=== PATIENT | female | born 1945 | race Hispanic/Latino ===

== ENCOUNTER 2019-02-03 12:40 | Inpatient (IN) | payer MEDICARE ==
[2019-02-03 12:55] VITALS: BMI 31.4
[2019-02-03 13:37] LABS: BASO % 0.4 % (0.0-2.0); EOS # 0.1 K/uL (0.0-0.7); EOS % 0.6 % (0.0-4.0); HEMOGLOBIN 13.3 g/dL (11.0-16.0); LYMPH # 0.7 K/uL (1.0-4.3); LYMPH % 8.4 % (20.0-40.0); MEAN CORPUSCULAR HEMOGLOBIN 28.4 pg (27.0-31.0); MEAN CORPUSCULAR HGB CONC 33.4 g/dL (33.0-37.0); MONO # 0.5 K/uL (0.0-0.8); MONO % 6.9 % (0.0-10.0); NEUT # 6.6 K/uL (1.8-7.0); NEUT % 83.7 % (50.0-75.0); NRBC % 0.1 % (0.0-2.0); RBC 4.69 Mil/uL (3.80-5.20); RED CELL DISTRIBUTION WIDTH 13.8 % (11.5-14.5); WHITE BLOOD COUNT 7.9 K/uL (4.8-10.8)
[2019-02-03 13:40] LABS: SQUAMOUS EPITHIAL 4 /hpf (0-5); URINE BACTERIA OCC (<OCC); URINE BILIRUBIN NEGATIVE (NEGATIVE); URINE BLOOD NEGATIVE (NEGATIVE); URINE CLARITY Clear (Clear); URINE COLOR Yellow (YELLOW); URINE GLUCOSE (UA) NORMAL (Normal); URINE LEUKOCYTE ESTERASE NEG Leu/uL (Negative); URINE PROTEIN NEGATIVE (NEGATIVE); URINE UROBILINOGEN NORMAL mg/dL (0.2-1.0)
[2019-02-03 13:49] LABS: ALB/GLOB RATIO 1.2 (1.0-2.1); ALBUMIN 4.5 g/dL (3.5-5.0); ALT/SGPT 20 U/L (9-52); AST/SGOT 22 U/L (14-36); BLOOD UREA NITROGEN 12 mg/dL (7-17); CALCIUM 9.8 mg/dl (8.6-10.4); GFR NON-AFRICAN AMERICAN > 60; PLATELET COUNT 372 K/uL (130-400)
[2019-02-03 14:00] LABS: B-TYPE NATRIURETIC PEPTIDE 208 pg/mL (0-900)
--- NOTE | 2019-02-03 14:21 | RAD ---
Date of service: 02/03/2019 HISTORY: Shortness of breath. COMPARISON: No prior. TECHNIQUE: Chest PA and lateral views FINDINGS: LUNGS: Right lower lobe infiltrate. Increased interstitial markings etiology/acuity unknown. PLEURA: No significant pleural effusion identified. No pneumothorax apparent. CARDIOVASCULAR: No aortic atherosclerotic calcification present. Normal cardiac size. No pulmonary vascular congestion. OSSEOUS STRUCTURES: No significant abnormalities. VISUALIZED UPPER ABDOMEN: Normal. OTHER FINDINGS: None. IMPRESSION: Right lower lobe infiltrate.
--- NOTE | 2019-02-03 14:25 | C.PDOC ---
History Of Present Illness The patient is a 73-year-old female whose past medical history includes lung cancer and underwent surgery in December 2018. She had resection of a mass but was told that the tissue was "not cancerous". She did not have any subsequent tr eatment. Patient states she had been doing well until she began feeling more short of breath than usual over the past two days. Patient states she feels like she can't take a full deep breath and her symptoms are exacerbated when lying down. Patient also reports cough, and her states her chest sounds very wet. Patient also noticed her legs appear slightly swollen. She denies fever, chills, chest pain at this time. PMD: Dr. Urban Recreation Technician is in [facility] Time Seen by Provider: 02/03/19 13:12 Chief Complaint (Nursing): Shortness Of Breath History Per: Patient History/Exam Limitations: no limitations Onset/Duration Of Symptoms: Days (2) Current Symptoms Are (Timing): Still Present Exacerbating Factor(s): Laying Flat Associated Symptoms: denies: Fever, Chills, Chest Pain Past Medical History Reviewed: Historical Data, Nursing Documentation, Vital Signs Vital Signs: Last Vital Signs Temp 97.7 F 02/03/19 12:55 Pulse 90 02/03/19 13:10 Resp 22 02/03/19 13:10 BP 162/89 H 02/03/19 13:10 Pulse Ox 97 02/03/19 13:10 Primary Care Provider: Андрей Urban - Medical History PMH: HTN, Hypercholesterolemia Surgical History: No Surg Hx Family History: States: No Known Family Hx - Social History Hx Tobacco Use: Yes Hx Alcohol Use: No Hx Substance Use: No - Immunization History Hx Tetanus Toxoid Vaccination: No Hx Influenza Vaccination: No Hx Pneumococcal Vaccination: No Review Of Systems Constitutional: Negative for: Fever, Chills Cardiovascular: Negative for: Chest Pain Respiratory: Positive for: Cough, Shortness of Breath Musculoskeletal: Positive for: Other (leg swelling ) Physical Exam - Physical Exam Appears: Non-toxic, No Acute Distress Skin: Normal Color, Warm, Dry Head: Atraumatic, Normacephalic Eye(s): bilateral: Normal Inspection Oral Mucosa: Moist Neck: Supple Chest: Symmetrical, No Deformity, No Tenderness Cardiovascular: Rhythm Regular, No Murmur Respiratory: Normal Breath Sounds, No Rales, No Rhonchi, No Wheezing Extremity: Normal ROM, Capillary Refill (less than 2 seconds ), Other (mild, 1+ edema equally to bilateral lower extremities ) Pulses: Left Dorsalis Pedis: Normal, Right Dorsalis Pedis: Normal Neurological/Psych: Oriented x3, Normal Speech, Normal Cognition ED Course And Treatment - Laboratory Results Result Diagrams: 02/03/19 13:28 02/03/19 13:28 Lab Results: D-Dimer, Quantitative 1919 ng/mlDDU (0-243) H 02/03/19 13:28 Troponin I < 0.0120 ng/mL (0.00-0.120) 02/03/19 13:28 NT-Pro-B Natriuret Pep 208 pg/mL (0-900) 02/03/19 13: Total Bilirubin 0.6 mg/dL (0.2-1.3) 02/03/19 13:28 AST 22 U/L (14-36) 02/03/19 13:28 ALT 20 U/L (9-52) 02/03/19 13:28 Alkaline Phosphatase 141 U/L (38-126) H 02/03/19 13:28 Total Protein 8.4 g/dL (6.3-8.3) H 02/03/19 13:28 Albumin 4.5 g/dL (3.5-5.0) 02/03/19 13:28 Globulin 3.9 gm/dL (2.2-3.9) 02/03/19 13:28 Albumin/Globulin Ratio 1.2 (1.0-2.1) 02/03/19 13:28 Urine Color Yellow (YELLOW) 02/03/19 13:28 Urine Clarity Clear (Clear) 02/03/19 13:28 Urine pH 6.0 (5.0-8.0) 02/03/19 13:28 Ur Specific [place] 1.013 (1.003-1.030) 02/03/19 13:28 Urine Protein Negative mg/dL (NEGATIVE) 02/03/19 13:28 Urine Glucose (UA) Normal mg/dL (Normal) 02/03/19 13:28 Urine Ketones 1+ mg/dL (NEGATIVE) H 02/03/19 13:28 Urine Blood Negative (NEGATIVE) 02/03/19 13:28 Urine Nitrate Negative (NEGATIVE) 02/03/19 13:28 Urine Bilirubin Negative (NEGATIVE) 02/03/19 13:28 Urine Urobilinogen Normal mg/dL (0.2-1.0) 02/03/19 13:28 Ur Leukocyte Esterase Neg [place]/uL (Negative) 02/03/19 13:28 Urine WBC (Auto) 1 /hpf (0-5) 02/03/19 13:28 Urine RBC (Auto) 1 /hpf (0-3) 02/03/19 13:28 Ur Squamous Epith Cells 4 /hpf (0-5) 02/03/19 13:28 Urine Bacteria Occ (<OCC) H 02/03/19 13:28 Lab Interpretation: Abnormal (Na 131, Cl 95, d dimer 1919) ECG: Interpreted By Me ECG Rhythm: Sinus Rhythm ECG Interpretation: Normal O2 Sat by Pulse Oximetry: 97 (on RA ) Pulse Ox Interpretation: Normal - Radiology CXR: Viewed By Me, Read By Radiologist CXR Interpretation: Yes: Infiltrates (RLL) - Other Rad CXR X-Ray: Viewed By Me, Read By Radiologist Interpretation: Date of service: 02/03/2019. HISTORY: Shortness of breath. COMPARISON: No prior. TECHNIQUE: Chest PA and lateral views. FINDINGS: LUNGS: Right lower lobe infiltrate. Increased interstitial markings etiology/acuity unknown. PLEURA: No significant pleural effusion identified. No pneumothorax apparent. CARDIOVASCULAR: No aortic atherosclerotic calcification present. Normal cardiac size. No pulmonary vascular congestion. OSSEOUS STRUCTURES: No significant abnormalities. VISUALIZED UPPER ABDOMEN: Normal. OTHER FINDINGS: None. IMPRESSION: Right lower lobe infiltrate. - CT Scan/US CT angio Chest Other Rad Studies (CT/US): Read By Radiologist, Radiology Report Reviewed CT/US Interpretation: Accession No. : [id number]. Patient Name / ID : SUE MAJOR / [id number]. Exam Date : 02/03/2019 15:52:12 ( Approved ). Study Comment : Sex / Age : F / 73Y. Creator : Pat Diane. Dictator : Martinez Taylor MD. Customizer : Relay Repairer : Martinez Taylor MD. Approver2 : Report Date : 02/03/2019 16:01:55. My Comment : . Date of service: 02/03/2019. PROCEDURE: CT Chest with contrast (Pulmonary Angiogram). HISTORY: shortness of breath. COMPARISON: Chest radiograph 02/03/2019. TECHNIQUE: Axial computed tomography images were obtained of the chest in the pulmonary arterial phase of enhancement. Coronal and sagittal reformatted images were created and reviewed. Intravenous contrast dose: Visipaque 320, 100 cc. Radiation dose: Total exam DLP = 590.52 mGy-cm. This CT exam was performed using one or more of the following dose reduction techniques: Automated exposure control, adjustment of the mA and/or kV according to patient size, and/or use of iterative reconstru ction technique. FINDINGS: PULMONARY ARTERIES: Unremarkable. No pulmonary embolism. AORTA: No acute findings. No thoracic aortic aneurysm. No aortic atherosclerotic calcification or mural plaque present. LUNGS: Diffuse ground- glass opacities appreciated as well as increased interstitial markings. Pulmonary venous anatomy appears slightly dilated relative to the associate financial representative airways in a pattern suspicious for CHF. Interstitial pulmonary disease, either infectious or inflammatory is the differential diagnosis but since there is pulmonary vascular congestion, CHF is highly favored. Clinically correlate further. Reticular nodular changes are identified at bilateral pulmonary apices without definite alveolar infiltrates bilaterally. PLEURAL SPACES: Moderate right pleural effusion. None is seen the left. No pericardial effusion. No significant lymphadenopathy. HEART: Cardiac size is normal. Coronary artery calcifications are identified. Main pulmonary artery is normal in caliber. No overt enlargement of the right ventricle relative to the left. BONES, CHEST WALL: See below. No fracture or destructive bony lesion appreciated. OTHER FINDINGS: Prominent emphysema seen the right chest superficial and deep subcutaneous fat extending through the right breast. Further, emphysema is seen deep to the right pectoralis major muscle approaching the upper right rib cage level near the thoracic apex. IMPRESSION: 1. No CT evidence of pulmonary embolus. 2. Questionable deep laceration right breast/chest wall with extensive emphysematous change at the superficial and deep right breast subcutaneous fat and through the right pectoralis major muscle approaching the right apex ribs. No pneumothorax bilaterally. 3. Moderate right pleural effusion. 4. Bilateral interstitial pulmonary disease in reticular nodular pattern may be a function of atypical pneumonitis though post radiation change, post chemotherapy related inflammation or other inflammatory or infectious process is a possibility. Clinically correlate further. CHF is not favored clinically on discussion of the findings with the referring physician but is a limited possibility. Findings discussed by telephone with Dr. Raza with written down and read back verification 02/03/2019 4:20 p.m.. Progress Note: Bloodwork, urinalysis, CXR, CT Angio Chest and EKG ordered and reviewed. PMD Dr Urban covered by Dr Olvera. Case discussed and results reviewed. [facility] Reevaluation Time: 18:13 Reassessment Condition: Unchanged - Physician Consult Information Time Consulting Physician Contacted: 18:13 Physician Contacted: Eric Olvera Outcome Of Conversation: Patient to be admitted for evaluation of dyspnea, right pleural effusion and diffuse interstitial pneumonitis. Disposition - Disposition Disposition: HOSPITALIZED Disposition Time: 18:17 Condition: STABLE - POA Present On Arrival: None - Clinical Impression Clinical Impression: Dyspnea, Pleural effusion, Pneumonitis - Scribe Statement The provider has reviewed the documentation as recorded by the Scribe (Charisse Olvera) Provider Attestation: All medical record entries made by the Scribe were at my direction and personally dictated by me. I have reviewed the chart and agree that the record accurately reflects my personal performance of the history, physical exam, medical decision making, and the department course for this patient. I have also personally directed, reviewed, and agree with the discharge instructions and disposition.
[2019-02-03 14:26] LABS: BANDS 1 % (0-2); LYMPHOCYTE 2 % (20-40); MONOCYTE 4 % (0-10); NEUTROPHIL 93 % (50-75); TOTAL CELLS COUNTED 100
[2019-02-03 14:27] LABS: PLATELET ESTIMATE NORMAL (NORMAL)
[2019-02-03] MEDS ORDERED: Iodixanol 320 MG/ML 100 ML BOTTLE IV ONE (15:10)
--- NOTE | 2019-02-03 16:29 | CT ---
Date of service: 02/03/2019 PROCEDURE: CT Chest with contrast (Pulmonary Angiogram) HISTORY: shortness of breath COMPARISON: Chest radiograph 02/03/2019. TECHNIQUE: Axial computed tomography images were obtained of the chest in the pulmonary arterial phase of enhancement. Coronal and sagittal reformatted images were created and reviewed. Intravenous contrast dose: Visipaque 320, 100 cc Radiation dose: Total exam DLP = 590.52 mGy-cm. This CT exam was performed using one or more of the following dose reduction techniques: Automated exposure control, adjustment of the mA and/or kV according to patient size, and/or use of iterative reconstruction technique. FINDINGS: PULMONARY ARTERIES: Unremarkable. No pulmonary embolism. AORTA: No acute findings. No thoracic aortic aneurysm. No aortic atherosclerotic calcification or mural plaque present. LUNGS: Diffuse ground-glass opacities appreciated as well as increased interstitial markings. Pulmonary venous anatomy appears slightly dilated relative to the psychological assistant airways in a pattern suspicious for CHF. Interstitial pulmonary disease, either infectious or inflammatory is the differential diagnosis but since there is pulmonary vascular congestion, CHF is highly favored. Clinically correlate further. Reticular nodular changes are identified at bilateral pulmonary apices without definite alveolar infiltrates bilaterally. PLEURAL SPACES: Moderate right pleural effusion. None is seen the left. No pericardial effusion. No significant lymphadenopathy. HEART: Cardiac size is normal. Coronary artery calcifications are identified. Main pulmonary artery is normal in caliber. No overt enlargement of the right ventricle relative to the left. BONES, CHEST WALL: See below. No fracture or destructive bony lesion appreciated. OTHER FINDINGS: Prominent emphysema seen the right chest superficial and deep subcutaneous fat extending through the right breast. Further, emphysema is seen deep to the right pectoralis major muscle approaching the upper right rib cage level near the thoracic apex. IMPRESSION: 1. No CT evidence of pulmonary embolus. 2. Questionable deep laceration right breast/chest wall with extensive emphysematous change at the superficial and deep right breast subcutaneous fat and through the right pectoralis major muscle approaching the right apex ribs. No pneumothorax bilaterally. 3. Moderate right pleural effusion. 4. Bilateral interstitial pulmonary disease in reticular nodular pattern may be a function of atypical pneumonitis though post radiation change, post chemotherapy related inflammation or other inflammatory or infectious process is a possibility. Clinically correlate further. CHF is not favored clinically on discussion of the findings with the referring physician but is a limited possibility. Findings discussed by telephone with Dr. Raza with written down and read back verification 02/03/2019 4:20 p.m..
--- NOTE | 2019-02-03 19:41 | CP.PCM.HP ---
Past Patient History - Infectious Disease Hx of Infectious Diseases: None - Past Social History Smoking Status: Former Smoker - CARDIAC Hx Hypercholesterolemia: Yes Hx Hypertension: Yes - PSYCHIATRIC Hx Substance Use: No - SURGICAL HISTORY Other/Comment: Hx Right Lung Biopsy - ANESTHESIA Hx Anesthesia: No Meds Allergies/Adverse Reactions: Allergies Allergy/AdvReac Type Severity Reaction Status Date / Time No Known Allergies Allergy Verified 02/03/19 12:55 Physical Exam - Constitutional Appears: Well - Head Exam Head Exam: ATRAUMATIC, NORMAL INSPECTION, NORMOCEPHALIC - Eye Exam Eye Exam: EOMI, Normal appearance, PERRL Pupil Exam: NORMAL ACCOMODATION, PERRL - ENT Exam ENT Exam: Mucous Membranes Moist, Normal Exam - Neck Exam Neck exam: Positive for: Normal Inspection - Respiratory Exam Respiratory Exam: Decreased Breath Sounds - Cardiovascular Exam Cardiovascular Exam: REGULAR RHYTHM, +S1, +S2 - GI/Abdominal Exam GI & Abdominal Exam: Diminished Bowel Sounds, Soft - Rectal Exam Rectal Exam: Deferred - Neurological Exam Neurological exam: Oriented x3 Results - Vital Signs Recent Vital Signs: Last Vital Signs Temp 97.7 F 02/03/19 12:55 Pulse 70 02/03/19 17:21 Resp 20 02/03/19 17:21 BP 154/77 H 02/03/19 17:21 Pulse Ox 97 02/03/19 18:18 - Labs Result Diagrams: 02/03/19 13:28 02/03/19 13:28 Labs: Laboratory Results - last 24 hr 02/03/19 02/03/19 02/03/19 13:28 13:28 13:28 WBC 7.9 RBC 4.69 Hgb 13.3 Hct 39.9 MCV 85.0 MCH 28.4 MCHC 33.4 RDW 13.8 Plt Count 372 D MPV 7.0 L Neut % (Auto) 83.7 H Lymph % (Auto) 8.4 L [place] % (Auto) 6.9 Eos % (Auto) 0.6 Baso % (Auto) 0.4 Neut # (Auto) 6.6 Lymph # (Auto) 0.7 L [place] # (Auto) 0.5 Eos # (Auto) 0.1 Baso # (Auto) 0.0 Neutrophils % (Manual) 93 H Band Neutrophils % 1 Lymphocytes % (Manual) 2 L Monocytes % (Manual) 4 Platelet Estimate Normal RBC Morphology Normal D-Dimer, Quantitative 1919 H Sodium Potassium Chloride Carbon Dioxide Anion Gap BUN Creatinine Est GFR ( Amer) Est GFR (Non-Af Amer) Random Glucose Calcium Total Bilirubin AST ALT Alkaline Phosphatase Troponin I NT-Pro-B Natriuret Pep Total Protein Albumin Globulin Albumin/Globulin Ratio Urine Color Yellow Urine Clarity Clear Urine pH 6.0 Ur Specific [place] 1.013 Urine Protein Negative Urine Glucose (UA) Normal Urine Ketones 1+ H Urine Blood Negative Urine Nitrate Negative Urine Bilirubin Negative Urine Urobilinogen Normal Ur Leukocyte Esterase Neg Urine WBC (Auto) 1 Urine RBC (Auto) 1 Ur Squamous Epith Cells 4 Urine Bacteria Occ H 02/03/19 13:28 WBC RBC Hgb Hct MCV MCH MCHC RDW Plt Count MPV Neut % (Auto) Lymph % (Auto) [place] % (Auto) Eos % (Auto) Baso % (Auto) Neut # (Auto) Lymph # (Auto) [place] # (Auto) Eos # (Auto) Baso # (Auto) Neutrophils % (Manual) Band Neutrophils % Lymphocytes % (Manual) Monocytes % (Manual) Platelet Estimate RBC Morphology D-Dimer, Quantitative Sodium 131 L Potassium 4.5 Chloride 95 L Carbon Dioxide 27 Anion Gap 14 BUN 12 Creatinine 0.6 L Est GFR ( Amer) > 60 Est GFR (Non-Af Amer) > 60 Random Glucose 97 Calcium 9.8 Total Bilirubin 0.6 AST 22 ALT 20 Alkaline Phosphatase 141 H Troponin I < 0.0120 NT-Pro-B Natriuret Pep 208 Total Protein 8.4 H Albumin 4.5 Globulin 3.9 Albumin/Globulin Ratio 1.2 Urine Color Urine Clarity Urine pH Ur Specific [place] Urine Protein Urine Glucose (UA) Urine Ketones Urine Blood Urine Nitrate Urine Bilirubin Urine Urobilinogen Ur Leukocyte Esterase Urine WBC (Auto) Urine RBC (Auto) Ur Squamous Epith Cells Urine Bacteria
[2019-02-03] MEDS ORDERED: Oxycodone/Acetaminophen 5/325 mg Tab PO PRN (21:13)
[2019-02-03] MEDS: Azithromycin 500 MG in Sodium Chloride 0.9% 250 ML IVPB SCH (22:14)
[2019-02-03] MEDS ORDERED: Enoxaparin 80 mg Syringe SC ONE (22:55)
[2019-02-04] MEDS: Albuterol-Ipratrop 3 mg / 0.5 (3 ml) UD INH SCH ×6 (00:20→20:48)
--- NOTE | 2019-02-04 10:37 | CP.PCM.CON ---
History of Present Illness - History of Present Illness History of Present Illness: CHART REVIEWED. PT SEEN AND EXAMINED 73 YO W FEMALE WITH A HX HTN, HYPERLIPIDEMIA, COPD, ADM WITH INCREASED MOD SOB WITH MIN EXERTION X 2 DAYS. +COUGH NO SPUTUM. +PAIN RIGHT AT SURG SITE, S/P RECENT RIGHT THORACOSCOPY BX DONE TOLD KATHY WOODS. ALSO RECENT +DX BREAST CA PLAN FOR BILAT MASTECTOMY. PT DENIES RECENT FEVER., NO CHILLS, NO WT LOSS. NOTED LE EDEMA BILAT. NO INHALERS. NO HX ASTHMA. QUIT SMOKING 2 WKS AGO. Review of Systems - Review of Systems All systems: reviewed and no additional remarkable complaints except - Constitutional Constitutional: absent: Fever, Weight Loss - EENT Eyes: absent: Change in Vision Ears: absent: Dizziness Nose/Mouth/Throat: absent: Nasal Congestion - Cardiovascular Cardiovascular: absent: Chest Pain - Respiratory Respiratory: Cough, Dyspnea, Dyspnea on Exertion. absent: Hemoptysis, Excessive Mucous Production - Gastrointestinal Gastrointestinal: absent: Nausea, Vomiting - Genitourinary Genitourinary: absent: Dysuria - Musculoskeletal Musculoskeletal: absent: Muscle Weakness - Integumentary Integumentary: absent: Rash - Neurological Neurological: absent: Confusion, Focal Weakness - Psychiatric Psychiatric: absent: Confusion - Endocrine Endocrine: absent: Change in Body Appearance Past Patient History - Infectious Disease Hx of Infectious Diseases: None - Past Medical History & Family History Past Family History: Reviewed and not pertinent Pertinent Family History: CAD - Past Social History Smoking Status: Former Smoker Chewing Tobacco Use: No Cigar Use: No Alcohol: None Drugs: Denies - CARDIAC Hx Hypercholesterolemia: Yes Hx Hypertension: Yes - PULMONARY Hx Lung Cancer: No - NEUROLOGICAL Hx Neurological Disorder: No - HEENT Hx HEENT Problems: No - RENAL Hx Chronic Kidney Disease: No - ENDOCRINE/METABOLIC Hx Endocrine Disorders: No - HEMATOLOGICAL/ONCOLOGICAL Hx Cancer: Yes (BREAST) - INTEGUMENTARY Hx Dermatological Problems: No - MUSCULOSKELETAL/RHEUMATOLOGICAL Hx Musculoskeletal Disorders: No - GASTROINTESTINAL Hx Gastrointestinal Disorders: No - GENITOURINARY/GYNECOLOGICAL Hx Genitourinary Disorders: No - PSYCHIATRIC Hx Psychophysiologic Disorder: No Hx Substance Use: No - SURGICAL HISTORY Hx Surgeries: Yes (RIGHT THORACOSCOPY) Hx Pulmonary Surgery: Yes Other/Comment: Hx Right Lung Biopsy - ANESTHESIA Hx Anesthesia: Yes Meds Allergies/Adverse Reactions: Allergies Allergy/AdvReac Type Severity Reaction Status Date / Time No Known Allergies Allergy Verified 02/03/19 12:55 - Medications Medications: Current Medications Albuterol/Ipratropium (Duoneb 3 Mg/0.5 Mg (3 Ml) Ud) 3 ml INH RQ4 [facility] Last Admin: 02/04/19 08:54 Dose: 3 ml Amlodipine Besylate (Norvasc) 10 mg PO DAILY [facility] Docusate Sodium (Colace) 100 mg PO BID [facility] Enalapril Maleate (Vasotec) 10 mg PO DAILY [facility] Enoxaparin Sodium (Lovenox) 40 mg SC DAILY [facility] Furosemide (Lasix) 40 mg IVP DAILY [facility] Gabapentin (Neurontin) 100 mg PO Q12 [facility] Last Admin: 02/03/19 22:12 Dose: 100 mg Azithromycin 500 mg/ Sodium (Chloride) 250 mls @ 250 mls/hr IVPB DAILY [facility]; Protocol Last Admin: 02/03/19 22:14 Dose: 250 mls/hr Ceftriaxone Sodium 1 gm/ (Sodium Chloride) 100 mls @ 100 mls/hr IVPB DAILY [facility]; Protocol Last Admin: 02/03/19 23:57 Dose: 100 mls/hr Naproxen (Anaprox Ds) 550 mg PO BID [facility] Oxycodone/Acetaminophen (Percocet 5/325 Mg Tab) 1 tab PO Q6H PRN PRN Reason: Pain, moderate (4-7) Stop: 02/06/19 21:14 Last Admin: 02/03/19 22:11 Dose: 1 tab Pantoprazole Sodium (Protonix Ec Tab) 40 mg PO DAILY [facility] Pneumococcal Polyvalent Vaccine (Pneumovax 23 Vaccine) 0.5 ml IM .ONCE ONE Stop: 02/05/19 10:01 Physical Exam - Constitutional Appears: No Acute Distress - Head Exam Head Exam: ATRAUMATIC, NORMOCEPHALIC - Eye Exam Eye Exam: EOMI, Normal appearance - ENT Exam ENT Exam: Mucous Membranes Moist - Neck Exam Neck exam: Positive for: Normal Inspection - Respiratory Exam Respiratory Exam: Chest Wall Tenderness, Rhonchi. absent: Wheezes, Respiratory Distress Additional comments: SURG WOUND DRY +RIGHT THORACOSCOPY - Cardiovascular Exam Cardiovascular Exam: RRR, +S1, +S2 - GI/Abdominal Exam GI & Abdominal Exam: Soft. absent: Tenderness - Rectal Exam Rectal Exam: Deferred - Extremities Exam Extremities exam: Positive for: pedal edema. Negative for: calf tenderness - Back Exam Back exam: absent: CVA tenderness (L), CVA tenderness (R) - Neurological Exam Neurological exam: Alert, CN II-XII Intact, Oriented x3 Results - Vital Signs Recent Vital Signs: Last Vital Signs Temp 97.9 F 02/04/19 08:00 Pulse 79 02/04/19 08:00 Resp 20 02/04/19 08:00 BP 146/75 02/04/19 08:00 Pulse Ox 98 02/04/19 08:00 - Labs Result Diagrams: 02/03/19 13:28 02/03/19 13:28 Labs: Laboratory Results - last 24 hr 02/03/19 02/03/19 02/03/19 13:28 13:28 13:28 WBC 7.9 RBC 4.69 Hgb 13.3 Hct 39.9 MCV 85.0 MCH 28.4 MCHC 33.4 RDW 13.8 Plt Count 372 D MPV 7.0 L Neut % (Auto) 83.7 H Lymph % (Auto) 8.4 L Brooks % (Auto) 6.9 Eos % (Auto) 0.6 Baso % (Auto) 0.4 Neut # (Auto) 6.6 Lymph # (Auto) 0.7 L Brooks # (Auto) 0.5 Eos # (Auto) 0.1 Baso # (Auto) 0.0 Neutrophils % (Manual) 93 H Band Neutrophils % 1 Lymphocytes % (Manual) 2 L Monocytes % (Manual) 4 Platelet Estimate Normal RBC Morphology Normal D-Dimer, Quantitative 1919 H Sodium Potassium Chloride Carbon Dioxide Anion Gap BUN Creatinine Est GFR ( Amer) Est GFR (Non-Af Amer) Random Glucose Calcium Total Bilirubin AST ALT Alkaline Phosphatase Troponin I NT-Pro-B Natriuret Pep Total Protein Albumin Globulin Albumin/Globulin Ratio Urine Color Yellow Urine Clarity Clear Urine pH 6.0 Ur Specific [place] 1.013 Urine Protein Negative Urine Glucose (UA) Normal Urine Ketones 1+ H Urine Blood Negative Urine Nitrate Negative Urine Bilirubin Negative Urine Urobilinogen Normal Ur Leukocyte Esterase Neg Urine WBC (Auto) 1 Urine RBC (Auto) 1 Ur Squamous Epith Cells 4 Urine Bacteria Occ H 02/03/19 13:28 WBC RBC Hgb Hct MCV MCH MCHC RDW Plt Count MPV Neut % (Auto) Lymph % (Auto) Brooks % (Auto) Eos % (Auto) Baso % (Auto) Neut # (Auto) Lymph # (Auto) Brooks # (Auto) Eos # (Auto) Baso # (Auto) Neutrophils % (Manual) Band Neutrophils % Lymphocytes % (Manual) Monocytes % (Manual) Platelet Estimate RBC Morphology D-Dimer, Quantitative Sodium 131 L Potassium 4.5 Chloride 95 L Carbon Dioxide 27 Anion Gap 14 BUN 12 Creatinine 0.6 L Est GFR ( Amer) > 60 Est GFR (Non-Af Amer) > 60 Random Glucose 97 Calcium 9.8 Total Bilirubin 0.6 AST 22 ALT 20 Alkaline Phosphatase 141 H Troponin I < 0.0120 NT-Pro-B Natriuret Pep 208 Total Protein 8.4 H Albumin 4.5 Globulin 3.9 Albumin/Globulin Ratio 1.2 Urine Color Urine Clarity Urine pH Ur Specific [place] Urine Protein Urine Glucose (UA) Urine Ketones Urine Blood Urine Nitrate Urine Bilirubin Urine Urobilinogen Ur Leukocyte Esterase Urine WBC (Auto) Urine RBC (Auto) Ur Squamous Epith Cells Urine Bacteria Assessment & Plan (1) Pneumonia Status: Acute (2) COPD exacerbation Status: Acute (3) CHF (congestive heart failure) Status: Acute (4) Hypertension Status: Acute (5) Hyperlipidemia Status: Acute (6) Breast carcinoma Status: Acute - Assessment and Plan (Free Text) Assessment: 73 YO FEMALE WITH A HX MULT MED PROBS ADM WITH DYSPNEA, +PNA ON CXR, CT CHEST AND CXR REVIEWED. NEG PE. CHECK LE DOPPLER, ELEV D-DIMER NOTED. +RECENT DX BREAST CA, PRE-OP W/U REVEALED RLL PULM OPACITY, S/P RIGHT THORACOSCOPY DONE, NEG MALIG PER PT. CONT NEB BD., PULM TOILET, MONITOR O2 SAT. CONT INCENT. SPIROM. EMPIRIC AB. CHECK ECHO. DVT PROPHYLAXIS. PFT'S WHEN STABLE. PROG GUARDED. DISCUSSED WITH STAFF AT LENGTH AND FAMILY AT BEDSIDE.
[2019-02-04] MEDS: Naproxen 550 mg Tab PO SCH ×2 (10:39→18:00)
[2019-02-04] MEDS: Pantoprazole 40 mg EC Tab PO SCH (10:39)
[2019-02-04] MEDS: Enoxaparin 40 mg Syringe SC SCH (10:41)
[2019-02-04] MEDS: Azithromycin 500 MG in Sodium Chloride 0.9% 250 ML IVPB SCH (10:44)
--- NOTE | 2019-02-04 12:13 | CARD ---
APPROVED REPORT Date of service: 02/03/2019 EKG Measurement Heart [id number] <Conclusion> Normal sinus rhythm Normal ECG
--- NOTE | 2019-02-04 18:38 | CP.PCM.PN ---
Subjective - Date & Time of Evaluation Date of Evaluation: 02/04/19 - Subjective Subjective: patient examined today no nausea no vomiting no dizziness no diarrhea no fever no shortness of breath Objective - Vital Signs/Intake and Output Vital Signs (last 24 hours): Temp Pulse Resp BP Pulse Ox 97.8 F 86 20 111/64 97 02/04/19 15:30 02/04/19 15:30 02/04/19 15:30 02/04/19 15:30 02/04/19 16:00 Intake and Output: 02/04/19 02/04/19 06:59 18:59 Intake Total 220 Balance 220 - Medications Medications: Current Medications Albuterol/Ipratropium (Duoneb 3 Mg/0.5 Mg (3 Ml) Ud) 3 ml INH RQ4 [facility] Last Admin: 02/04/19 16:17 Dose: 3 ml Amlodipine Besylate (Norvasc) 10 mg PO DAILY [facility] Last Admin: 02/04/19 10:39 Dose: 10 mg Docusate Sodium (Colace) 100 mg PO BID [facility] Last Admin: 02/04/19 18:00 Dose: 100 mg Enalapril Maleate (Vasotec) 10 mg PO DAILY [facility] Last Admin: 02/04/19 10:39 Dose: 10 mg Enoxaparin Sodium (Lovenox) 40 mg SC DAILY [facility] Last Admin: 02/04/19 10:41 Dose: 40 mg Furosemide (Lasix) 40 mg IVP DAILY [facility] Last Admin: 02/04/19 10:39 Dose: 40 mg Gabapentin (Neurontin) 100 mg PO Q12 [facility] Last Admin: 02/04/19 10:39 Dose: 100 mg Azithromycin 500 mg/ Sodium (Chloride) 250 mls @ 250 mls/hr IVPB DAILY [facility]; Protocol Last Admin: 02/04/19 10:44 Dose: 250 mls/hr Ceftriaxone Sodium 1 gm/ (Sodium Chloride) 100 mls @ 100 mls/hr IVPB DAILY [facility]; Protocol Last Admin: 02/04/19 10:40 Dose: 100 mls/hr Naproxen (Anaprox Ds) 550 mg PO BID [facility] Last Admin: 02/04/19 18:00 Dose: 550 mg Oxycodone/Acetaminophen (Percocet 5/325 Mg Tab) 1 tab PO Q6H PRN PRN Reason: Pain, moderate (4-7) Stop: 02/06/19 21:14 Last Admin: 02/03/19 22:11 Dose: 1 tab Pantoprazole Sodium (Protonix Ec Tab) 40 mg PO DAILY [facility] Last Admin: 02/04/19 10:39 Dose: 40 mg Pneumococcal Polyvalent Vaccine (Pneumovax 23 Vaccine) 0.5 ml IM .ONCE ONE Stop: 02/05/19 10:01 - Labs Labs: 02/03/19 13:28 02/03/19 13:28 - Constitutional Appears: Well - Head Exam Head Exam: ATRAUMATIC, NORMAL INSPECTION, NORMOCEPHALIC - Eye Exam Eye Exam: EOMI, Normal appearance, PERRL Pupil Exam: NORMAL ACCOMODATION, PERRL - ENT Exam ENT Exam: Mucous Membranes Moist, Normal Exam - Neck Exam Neck Exam: Full ROM, Normal Inspection. absent: Lymphadenopathy - Respiratory Exam Respiratory Exam: Decreased Breath Sounds - Cardiovascular Exam Cardiovascular Exam: REGULAR RHYTHM, +S1, +S2 - GI/Abdominal Exam GI & Abdominal Exam: Soft, Diminished Bowel Sounds - Rectal Exam Rectal Exam: Deferred - Neurological Exam Neurological Exam: Oriented x3 Assessment and Plan (1) Abdominal pain Status: Acute (2) Breast carcinoma Status: Acute (3) CHF (congestive heart failure) Status: Acute (4) Chronic back pain Status: Acute (5) COPD exacerbation Status: Acute (6) Dyspnea Status: Acute (7) Gas Status: Acute (8) Hyperlipidemia Status: Acute (9) Hypertension Status: Acute (10) Pleural effusion Status: Acute (11) Pneumonia Status: Acute (12) Pneumonitis Status: Acute - Assessment and Plan (Free Text) Plan: plan discussed with patient and family moderate complexity of care labs reviewed vitals reviewed cr 0.6 Na 131 medications reviewed anaprox ds azithromycin ceftriaxone sodium colace duoneb lasix lovenox neurontin norvasc percocet protonix ec tab vasotec
[2019-02-05] MEDS: Albuterol-Ipratrop 3 mg / 0.5 (3 ml) UD INH SCH ×6 (00:21→20:33)
[2019-02-05 07:38] LABS: BASO % 0.6 % (0.0-2.0); EOS # 0.3 K/uL (0.0-0.7); EOS % 5.4 % (0.0-4.0); HEMOGLOBIN 11.9 g/dL (11.0-16.0); LYMPH # 0.8 K/uL (1.0-4.3); LYMPH % 13.1 % (20.0-40.0); MEAN CELL VOLUME 84.3 fL (81.0-99.0); MEAN CORPUSCULAR HEMOGLOBIN 28.7 pg (27.0-31.0); MEAN CORPUSCULAR HGB CONC 34.1 g/dL (33.0-37.0); MEAN PLATELET VOLUME 7.1 fL (7.2-11.7); MONO # 0.5 K/uL (0.0-0.8); MONO % 8.5 % (0.0-10.0); NEUT # 4.5 K/uL (1.8-7.0); NEUT % 72.4 % (50.0-75.0); RBC 4.14 Mil/uL (3.80-5.20); RED CELL DISTRIBUTION WIDTH 13.7 % (11.5-14.5); WHITE BLOOD COUNT 6.2 K/uL (4.8-10.8)
[2019-02-05 07:50] LABS: BLOOD UREA NITROGEN 20 mg/dL (7-17); CALCIUM 9.4 mg/dl (8.6-10.4); GFR NON-AFRICAN AMERICAN > 60
[2019-02-05] MEDS: Enoxaparin 40 mg Syringe SC SCH (09:57)
[2019-02-05] MEDS: Naproxen 550 mg Tab PO SCH ×2 (09:57→17:25)
[2019-02-05] MEDS: Pantoprazole 40 mg EC Tab PO SCH (09:57)
[2019-02-05] MEDS ORDERED: Pneumococcal 23-Valent Vaccine IM ONE (10:00)
[2019-02-05] MEDS: Azithromycin 500 MG in Sodium Chloride 0.9% 250 ML IVPB SCH (10:06)
--- NOTE | 2019-02-05 13:04 | CP.PCM.PN ---
Subjective - Date & Time of Evaluation Date of Evaluation: 02/05/19 Time of Evaluation: 13:01 - Subjective Subjective: PT FEELS BETTER. OOB IN CHAIR. LESS COUGH LESS SOB. ROS; OTHERWISE NEG. Objective - Vital Signs/Intake and Output Vital Signs (last 24 hours): Temp Pulse Resp BP Pulse Ox 97.5 F L 81 20 115/67 96 02/05/19 07:42 02/05/19 07:42 02/05/19 07:42 02/05/19 09:57 02/05/19 07:42 Intake and Output: 02/05/19 02/05/19 06:59 18:59 Intake Total 950 Balance 950 - Medications Medications: Current Medications Albuterol/Ipratropium (Duoneb 3 Mg/0.5 Mg (3 Ml) Ud) 3 ml INH RQ4 [facility] Last Admin: 02/05/19 12:51 Dose: 3 ml Amlodipine Besylate (Norvasc) 10 mg PO DAILY [facility] Last Admin: 02/05/19 09:57 Dose: 10 mg Docusate Sodium (Colace) 100 mg PO BID [facility] Last Admin: 02/05/19 09:57 Dose: 100 mg Enalapril Maleate (Vasotec) 10 mg PO DAILY [facility] Last Admin: 02/05/19 09:57 Dose: 10 mg Enoxaparin Sodium (Lovenox) 40 mg SC DAILY [facility] Last Admin: 02/05/19 09:57 Dose: 40 mg Furosemide (Lasix) 40 mg IVP DAILY [facility] Last Admin: 02/05/19 09:56 Dose: 40 mg Gabapentin (Neurontin) 100 mg PO Q12 [facility] Last Admin: 02/05/19 09:57 Dose: 100 mg Azithromycin 500 mg/ Sodium (Chloride) 250 mls @ 250 mls/hr IVPB DAILY [facility]; Protocol Last Admin: 02/05/19 10:06 Dose: 250 mls/hr Ceftriaxone Sodium 1 gm/ (Sodium Chloride) 100 mls @ 100 mls/hr IVPB DAILY [facility]; Protocol Last Admin: 02/05/19 10:41 Dose: 100 mls/hr Naproxen (Anaprox Ds) 550 mg PO BID [facility] Last Admin: 02/05/19 09:57 Dose: 550 mg Oxycodone/Acetaminophen (Percocet 5/325 Mg Tab) 1 tab PO Q6H PRN PRN Reason: Pain, moderate (4-7) Stop: 02/06/19 21:14 Last Admin: 02/03/19 22:11 Dose: 1 tab Pantoprazole Sodium (Protonix Ec Tab) 40 mg PO DAILY [facility] Last Admin: 02/05/19 09:57 Dose: 40 mg - Labs Labs: 02/05/19 07:31 02/05/19 07:31 - Constitutional Appears: No Acute Distress - Head Exam Head Exam: ATRAUMATIC, NORMOCEPHALIC - Eye Exam Eye Exam: EOMI, Normal appearance - ENT Exam ENT Exam: Mucous Membranes Moist - Neck Exam Neck Exam: Normal Inspection - Respiratory Exam Respiratory Exam: Decreased Breath Sounds, Rhonchi Additional comments: BETTER AIR MOVEMENT., - Cardiovascular Exam Cardiovascular Exam: RRR, +S1, +S2 - GI/Abdominal Exam GI & Abdominal Exam: Soft. absent: Tenderness - Rectal Exam Rectal Exam: Deferred - Extremities Exam Extremities Exam: absent: Calf Tenderness, Pedal Edema - Back Exam Back Exam: absent: CVA tenderness (L), CVA tenderness (R) - Neurological Exam Neurological Exam: Alert, Awake, CN II-XII Intact, Oriented x3 - Psychiatric Exam Psychiatric exam: Normal Mood - Skin Skin Exam: absent: Rash Assessment and Plan (1) Pneumonia Status: Acute (2) COPD exacerbation Status: Acute (3) CHF (congestive heart failure) Status: Acute (4) Hypertension Status: Acute (5) Hyperlipidemia Status: Acute (6) Breast carcinoma Status: Acute - Assessment and Plan (Free Text) Assessment: RESP S TATUS IMPROVING., CONT PULM TOILET., NEB BD., MONITOR O2 SAT. AFEBRILE ON AB. CXR REVIEWED. DISCUSSED WITH STAFF AT LENGTH AND FAMILY AT BEDSIDE AND PMD.
--- NOTE | 2019-02-05 13:04 | VASCLAB ---
Date of service: 02/04/2019 PROCEDURE: Lower Extremity Venous Duplex Exam. HISTORY: D-dimer elevated, swollen extremities. PRIORS: None. TECHNIQUE: Bilateral common femoral, femoral, popliteal and posterior tibial, peroneal and great saphenous veins were evaluated. Flow was assessed with color Doppler, compressibility, assessment of phasic flow and augmentation response. Report prepared by OLGA Castaneda FINDINGS: RIGHT: 1. Common Femoral Vein: 1.1. Compressibility - Fully compressible: Thrombus - None : Flow - Phasic: Augmentation -Normal: Reflux - None. 2. Femoral Vein: 2.1. Compressibility - Fully compressible: Thrombus - None : Flow - Phasic: Augmentation -Normal: Reflux - None. 3. Popliteal Vein: 3.1. Compressibility - Fully compressible: Thrombus - None : Flow - Phasic: Augmentation -Normal: Reflux - None. 4. Posterior Tibial Vein: 4.1. Compressibility - Fully compressible: Thrombus - None: Flow - Phasic: Augmentation -Normal: Reflux - None. 5. Peroneal Vein: 5.1. Compressibility - Fully compressible: Thrombus - None: Flow - Phasic: Augmentation -Normal: Reflux - None. 6. Great Saphenous Vein: 6.1. Compressibility - Fully compressible: Thrombus - None: Flow - Phasic: Augmentation - Normal: Reflux - None. LEFT: 1. Common Femoral Vein: 1.1. Compressibility - Fully compressible: Thrombus - None: Flow - Phasic: Augmentation -Normal: Reflux - None. 2. Femoral Vein: 2.1. Compressibility - Fully compressible: Thrombus - None: Flow - Phasic: Augmentation -Normal: Reflux - None. 3. Popliteal Vein: 3.1. Compressibility - Fully compressible: Thrombus - None : Flow - Phasic: Augmentation -Normal: Reflux - None. 4. Posterior Tibial Vein: 4.1. Compressibility - Fully compressible: Thrombus - None: Flow - Phasic: Augmentation -Normal: Reflux - None. 5. Peroneal Vein: 5.1. Compressibility - Fully compressible: Thrombus - None: Flow - Phasic: Augmentation -Normal: Reflux - None. 6. Great Saphenous Vein: 6.1. Compressibility - Fully compressible: Thrombus - None: Flow - Phasic: Augmentation - Normal: Reflux - Severe >3.14s OTHER FINDINGS: None significant. IMPRESSION: Right: No evidence of deep or superficial vein thrombosis of the right lower extremity. Normal valve function noted of the right side. Left: No evidence of deep or superficial vein thrombosis of the left lower extremity. Valvular incompetence noted of the left great saphenous vein.
--- NOTE | 2019-02-05 23:07 | CP.PCM.PN ---
Subjective - Date & Time of Evaluation Date of Evaluation: 02/05/19 - Subjective Subjective: patient examined today no nausea, no vomiting, no dizziness, no diarrhea, no fever, no shortness of breath Objective - Vital Signs/Intake and Output Vital Signs (last 24 hours): Temp Pulse Resp BP Pulse Ox 98.2 F 87 20 161/79 H 97 02/05/19 16:23 02/05/19 16:23 02/05/19 16:23 02/05/19 16:23 02/05/19 16:23 Intake and Output: 02/05/19 02/06/19 18:59 06:59 Intake Total 350 350 Balance 350 350 - Medications Medications: Current Medications Albuterol/Ipratropium (Duoneb 3 Mg/0.5 Mg (3 Ml) Ud) 3 ml INH RQ4 [facility] Last Admin: 02/05/19 20:33 Dose: 3 ml Amlodipine Besylate (Norvasc) 10 mg PO DAILY [facility] Last Admin: 02/05/19 09:57 Dose: 10 mg Docusate Sodium (Colace) 100 mg PO BID [facility] Last Admin: 02/05/19 17:25 Dose: 100 mg Enalapril Maleate (Vasotec) 10 mg PO DAILY [facility] Last Admin: 02/05/19 09:57 Dose: 10 mg Enoxaparin Sodium (Lovenox) 40 mg SC DAILY [facility] Last Admin: 02/05/19 09:57 Dose: 40 mg Furosemide (Lasix) 40 mg IVP DAILY [facility] Last Admin: 02/05/19 09:56 Dose: 40 mg Gabapentin (Neurontin) 100 mg PO Q12 [facility] Last Admin: 02/05/19 21:03 Dose: 100 mg Azithromycin 500 mg/ Sodium (Chloride) 250 mls @ 250 mls/hr IVPB DAILY [facility]; Protocol Last Admin: 02/05/19 10:06 Dose: 250 mls/hr Ceftriaxone Sodium 1 gm/ (Sodium Chloride) 100 mls @ 100 mls/hr IVPB DAILY [facility]; Protocol Last Admin: 02/05/19 10:41 Dose: 100 mls/hr Naproxen (Anaprox Ds) 550 mg PO BID [facility] Last Admin: 02/05/19 17:25 Dose: 550 mg Oxycodone/Acetaminophen (Percocet 5/325 Mg Tab) 1 tab PO Q6H PRN PRN Reason: Pain, moderate (4-7) Stop: 02/06/19 21:14 Last Admin: 02/03/19 22:11 Dose: 1 tab Pantoprazole Sodium (Protonix Ec Tab) 40 mg PO DAILY [facility] Last Admin: 02/05/19 09:57 Dose: 40 mg - Labs Labs: 02/05/19 07:31 02/05/19 07:31 - Constitutional Appears: Well - Head Exam Head Exam: ATRAUMATIC, NORMAL INSPECTION, NORMOCEPHALIC - Eye Exam Eye Exam: EOMI, Normal appearance, PERRL Pupil Exam: NORMAL ACCOMODATION, PERRL - ENT Exam ENT Exam: Mucous Membranes Moist, Normal Exam - Neck Exam Neck Exam: Full ROM, Normal Inspection. absent: Lymphadenopathy - Respiratory Exam Respiratory Exam: Decreased Breath Sounds - Cardiovascular Exam Cardiovascular Exam: REGULAR RHYTHM, +S1, +S2 - GI/Abdominal Exam GI & Abdominal Exam: Soft, Diminished Bowel Sounds - Rectal Exam Rectal Exam: Deferred - Neurological Exam Neurological Exam: Oriented x3 Assessment and Plan (1) Breast carcinoma Status: Acute (2) CHF (congestive heart failure) Status: Acute (3) COPD exacerbation Status: Acute (4) Dyspnea Status: Acute (5) Hyperlipidemia Status: Acute (6) Hypertension Status: Acute (7) Pleural effusion Status: Acute (8) Pneumonia Status: Acute (9) Pneumonitis Status: Acute (10) Abdominal pain Status: Acute (11) Chronic back pain Status: Acute (12) Gas Status: Acute - Assessment and Plan (Free Text) Plan: plan discussed with patient moderate complexity of care bun 20 anaprox ds azithromycin ceftriaxone sodium colace duoneb lasix lovenox neurontin norvasc percocet protonix ec tab vasotec medications reviewed labs reviewed vitals reviewed
[2019-02-06] MEDS: Albuterol-Ipratrop 3 mg / 0.5 (3 ml) UD INH SCH ×6 (00:21→23:51)
--- NOTE | 2019-02-06 07:48 | CP.PCM.PN ---
Subjective - Date & Time of Evaluation Date of Evaluation: 02/06/19 Time of Evaluation: 07:46 - Subjective Subjective: PT ALERT, OOB IN CHAIR. LESS SOB. STILL +COUGH, NO SPUTUM. ROS; OTHERWISE NEG. Objective - Vital Signs/Intake and Output Vital Signs (last 24 hours): Temp Pulse Resp BP Pulse Ox 98.7 F 89 20 138/71 97 02/05/19 23:56 02/05/19 23:56 02/05/19 23:56 02/05/19 23:56 02/05/19 23:56 Intake and Output: 02/06/19 02/06/19 06:59 18:59 Intake Total 590 Balance 590 - Medications Medications: Current Medications Albuterol/Ipratropium (Duoneb 3 Mg/0.5 Mg (3 Ml) Ud) 3 ml INH RQ4 [facility] Last Admin: 02/06/19 00:21 Dose: 3 ml Amlodipine Besylate (Norvasc) 10 mg PO DAILY [facility] Last Admin: 02/05/19 09:57 Dose: 10 mg Docusate Sodium (Colace) 100 mg PO BID [facility] Last Admin: 02/05/19 17:25 Dose: 100 mg Enalapril Maleate (Vasotec) 10 mg PO DAILY [facility] Last Admin: 02/05/19 09:57 Dose: 10 mg Enoxaparin Sodium (Lovenox) 40 mg SC DAILY [facility] Last Admin: 02/05/19 09:57 Dose: 40 mg Furosemide (Lasix) 40 mg IVP DAILY [facility] Last Admin: 02/05/19 09:56 Dose: 40 mg Gabapentin (Neurontin) 100 mg PO Q12 [facility] Last Admin: 02/05/19 21:03 Dose: 100 mg Azithromycin 500 mg/ Sodium (Chloride) 250 mls @ 250 mls/hr IVPB DAILY [facility]; Protocol Last Admin: 02/05/19 10:06 Dose: 250 mls/hr Ceftriaxone Sodium 1 gm/ (Sodium Chloride) 100 mls @ 100 mls/hr IVPB DAILY [facility]; Protocol Last Admin: 02/05/19 10:41 Dose: 100 mls/hr Naproxen (Anaprox Ds) 550 mg PO BID [facility] Last Admin: 02/05/19 17:25 Dose: 550 mg Oxycodone/Acetaminophen (Percocet 5/325 Mg Tab) 1 tab PO Q6H PRN PRN Reason: Pain, moderate (4-7) Stop: 02/06/19 21:14 Last Admin: 02/03/19 22:11 Dose: 1 tab Pantoprazole Sodium (Protonix Ec Tab) 40 mg PO DAILY [facility] Last Admin: 02/05/19 09:57 Dose: 40 mg - Labs Labs: 02/05/19 07:31 02/05/19 07:31 - Constitutional Appears: Non-toxic, No Acute Distress - Head Exam Head Exam: ATRAUMATIC, NORMOCEPHALIC - Eye Exam Eye Exam: EOMI, Normal appearance - ENT Exam ENT Exam: Mucous Membranes Moist - Neck Exam Neck Exam: Normal Inspection - Respiratory Exam Respiratory Exam: Decreased Breath Sounds, Rhonchi Additional comments: BETTER AIR MOVEMENT. - Cardiovascular Exam Cardiovascular Exam: RRR, +S1, +S2 - GI/Abdominal Exam GI & Abdominal Exam: Soft. absent: Tenderness - Rectal Exam Rectal Exam: Deferred - Extremities Exam Extremities Exam: absent: Calf Tenderness, Pedal Edema - Back Exam Back Exam: absent: CVA tenderness (L), CVA tenderness (R) - Neurological Exam Neurological Exam: Alert, Awake, CN II-XII Intact, Oriented x3 - Psychiatric Exam Psychiatric exam: Normal Mood - Skin Skin Exam: absent: Rash Assessment and Plan (1) Pneumonia Status: Acute (2) COPD exacerbation Status: Acute (3) CHF (congestive heart failure) Status: Acute (4) Hypertension Status: Acute (5) Hyperlipidemia Status: Acute (6) Breast carcinoma Status: Acute - Assessment and Plan (Free Text) Assessment: RESP STATUS IMPROVING. LESS DYSPNEIC. CONT NEB BD., MONITOR O2 SAT. CXR REVIEWED. ADD PHENERGAN. AFEBRILE ON AB. DISCUSSED WITH STAFF
[2019-02-06] MEDS: Naproxen 550 mg Tab PO SCH ×2 (10:50→17:49)
[2019-02-06] MEDS: Pantoprazole 40 mg EC Tab PO SCH (10:51)
[2019-02-06] MEDS: Enoxaparin 40 mg Syringe SC SCH (10:51)
[2019-02-06] MEDS: Azithromycin 500 MG in Sodium Chloride 0.9% 250 ML IVPB SCH (11:00)
[2019-02-06] MEDS: Promethazine 6.25 MG/5 ML CUP PO SCH ×2 (12:36→17:49)
--- NOTE | 2019-02-06 23:20 | CP.PCM.PN ---
Subjective - Date & Time of Evaluation Date of Evaluation: 02/06/19 - Subjective Subjective: no c/o vomiting, no diarrhea, no fever Objective - Vital Signs/Intake and Output Vital Signs (last 24 hours): Temp Pulse Resp BP Pulse Ox 98.4 F 91 H 20 113/61 98 02/06/19 15:00 02/06/19 15:00 02/06/19 15:00 02/06/19 15:00 02/06/19 15:00 Intake and Output: 02/06/19 02/07/19 18:59 06:59 Intake Total 600 Balance 600 - Medications Medications: Current Medications Albuterol/Ipratropium (Duoneb 3 Mg/0.5 Mg (3 Ml) Ud) 3 ml INH RQ4 [facility] Last Admin: 02/06/19 20:10 Dose: 3 ml Amlodipine Besylate (Norvasc) 10 mg PO DAILY [facility] Last Admin: 02/06/19 10:50 Dose: 10 mg Docusate Sodium (Colace) 100 mg PO BID [facility] Last Admin: 02/06/19 17:49 Dose: 100 mg Enalapril Maleate (Vasotec) 10 mg PO DAILY [facility] Last Admin: 02/06/19 10:53 Dose: 10 mg Enoxaparin Sodium (Lovenox) 40 mg SC DAILY [facility] Last Admin: 02/06/19 10:51 Dose: 40 mg Furosemide (Lasix) 40 mg IVP DAILY [facility] Last Admin: 02/06/19 10:52 Dose: 40 mg Gabapentin (Neurontin) 100 mg PO Q12 [facility] Last Admin: 02/06/19 22:00 Dose: 100 mg Azithromycin 500 mg/ Sodium (Chloride) 250 mls @ 250 mls/hr IVPB DAILY [facility]; Protocol Last Admin: 02/06/19 11:00 Dose: 250 mls/hr Ceftriaxone Sodium 1 gm/ (Sodium Chloride) 100 mls @ 100 mls/hr IVPB DAILY [facility]; Protocol Last Admin: 02/06/19 10:52 Dose: 100 mls/hr Naproxen (Anaprox Ds) 550 mg PO BID [facility] Last Admin: 02/06/19 17:49 Dose: 550 mg Pantoprazole Sodium (Protonix Ec Tab) 40 mg PO DAILY [facility] Last Admin: 02/06/19 10:51 Dose: 40 mg Promethazine HCl (Phenergan Syrup) 6.25 mg PO Q6 [facility] Last Admin: 02/06/19 17:49 Dose: 6.25 mg - Labs Labs: 02/05/19 07:31 02/05/19 07:31 - Constitutional Appears: Well - Head Exam Head Exam: ATRAUMATIC, NORMAL INSPECTION, NORMOCEPHALIC - Eye Exam Eye Exam: EOMI, Normal appearance, PERRL Pupil Exam: NORMAL ACCOMODATION, PERRL - ENT Exam ENT Exam: Mucous Membranes Moist, Normal Exam - Neck Exam Neck Exam: Full ROM, Normal Inspection. absent: Lymphadenopathy - Respiratory Exam Respiratory Exam: Decreased Breath Sounds - Cardiovascular Exam Cardiovascular Exam: REGULAR RHYTHM, +S1, +S2 - GI/Abdominal Exam GI & Abdominal Exam: Soft, Diminished Bowel Sounds - Rectal Exam Rectal Exam: Deferred - Neurological Exam Neurological Exam: Oriented x3 Assessment and Plan (1) Breast carcinoma Status: Acute (2) CHF (congestive heart failure) Status: Acute (3) COPD exacerbation Status: Acute (4) Dyspnea Status: Acute (5) Hyperlipidemia Status: Acute (6) Hypertension Status: Acute (7) Pleural effusion Status: Acute (8) Pneumonia Status: Acute (9) Pneumonitis Status: Acute (10) Abdominal pain Status: Acute (11) Chronic back pain Status: Acute (12) Gas Status: Acute - Assessment and Plan (Free Text) Plan: BUN 20 DuoNeb Norvasc Colace Vasotec Lovenox Lasix Neurontin Azithromycin Ceftriaxone Anaprox Protonix Phenergan Moderate to high complexity of care. Plan of care discussed with patient &/or family & staff. Medications reviewed and reconciled. Labs reviewed. Vitals reviewed.
[2019-02-07] MEDS: Promethazine 6.25 MG/5 ML CUP PO SCH ×4 (00:25→17:23)
[2019-02-07] MEDS: Albuterol-Ipratrop 3 mg / 0.5 (3 ml) UD INH SCH ×5 (08:53→23:49)
[2019-02-07] MEDS: Enoxaparin 40 mg Syringe SC SCH (10:38)
[2019-02-07] MEDS: Naproxen 550 mg Tab PO SCH ×2 (10:38→17:23)
[2019-02-07] MEDS: Pantoprazole 40 mg EC Tab PO SCH (10:38)
[2019-02-07] MEDS: Azithromycin 500 MG in Sodium Chloride 0.9% 250 ML IVPB SCH (10:39)
--- NOTE | 2019-02-07 11:07 | CP.PCM.PN ---
Subjective - Date & Time of Evaluation Date of Evaluation: 02/07/19 - Subjective Subjective: no c/o vomiting, no diarrhea, no fever Objective - Vital Signs/Intake and Output Vital Signs (last 24 hours): Temp Pulse Resp BP Pulse Ox 98 F 91 H 20 130/74 94 L 02/07/19 07:59 02/07/19 07:59 02/07/19 07:59 02/07/19 10:39 02/07/19 07:59 Intake and Output: 02/07/19 02/07/19 06:59 18:59 Intake Total 600 Balance 600 - Medications Medications: Current Medications Albuterol/Ipratropium (Duoneb 3 Mg/0.5 Mg (3 Ml) Ud) 3 ml INH RQ4 [facility] Last Admin: 02/07/19 08:53 Dose: 3 ml Amlodipine Besylate (Norvasc) 10 mg PO DAILY [facility] Last Admin: 02/07/19 10:38 Dose: 10 mg Docusate Sodium (Colace) 100 mg PO BID [facility] Last Admin: 02/07/19 10:38 Dose: 100 mg Enalapril Maleate (Vasotec) 10 mg PO DAILY [facility] Last Admin: 02/07/19 10:38 Dose: 10 mg Enoxaparin Sodium (Lovenox) 40 mg SC DAILY [facility] Last Admin: 02/07/19 10:38 Dose: 40 mg Furosemide (Lasix) 40 mg IVP DAILY [facility] Last Admin: 02/07/19 10:39 Dose: 40 mg Gabapentin (Neurontin) 100 mg PO Q12 [facility] Last Admin: 02/07/19 10:38 Dose: 100 mg Azithromycin 500 mg/ Sodium (Chloride) 250 mls @ 250 mls/hr IVPB DAILY [facility]; Protocol Last Admin: 02/07/19 10:39 Dose: 250 mls/hr Ceftriaxone Sodium 1 gm/ (Sodium Chloride) 100 mls @ 100 mls/hr IVPB DAILY [facility]; Protocol Last Admin: 02/07/19 10:39 Dose: 100 mls/hr Naproxen (Anaprox Ds) 550 mg PO BID [facility] Last Admin: 02/07/19 10:38 Dose: 550 mg Pantoprazole Sodium (Protonix Ec Tab) 40 mg PO DAILY [facility] Last Admin: 02/07/19 10:38 Dose: 40 mg Promethazine HCl (Phenergan Syrup) 6.25 mg PO Q6 [facility] Last Admin: 02/07/19 06:07 Dose: 6.25 mg - Labs Labs: 02/05/19 07:31 02/05/19 07:31 - Constitutional Appears: Well - Head Exam Head Exam: ATRAUMATIC, NORMAL INSPECTION, NORMOCEPHALIC - Eye Exam Eye Exam: EOMI, Normal appearance, PERRL Pupil Exam: NORMAL ACCOMODATION, PERRL - ENT Exam ENT Exam: Mucous Membranes Moist, Normal Exam - Neck Exam Neck Exam: Full ROM, Normal Inspection. absent: Lymphadenopathy - Respiratory Exam Respiratory Exam: Decreased Breath Sounds - Cardiovascular Exam Cardiovascular Exam: REGULAR RHYTHM, +S1, +S2 - GI/Abdominal Exam GI & Abdominal Exam: Soft, Diminished Bowel Sounds - Rectal Exam Rectal Exam: Deferred - Neurological Exam Neurological Exam: Oriented x3 Assessment and Plan (1) Breast carcinoma Status: Acute (2) CHF (congestive heart failure) Status: Acute (3) COPD exacerbation Status: Acute (4) Dyspnea Status: Acute (5) Hyperlipidemia Status: Acute (6) Hypertension Status: Acute (7) Pleural effusion Status: Acute (8) Pneumonia Status: Acute (9) Pneumonitis Status: Acute (10) Abdominal pain Status: Acute (11) Chronic back pain Status: Acute (12) Gas Status: Acute - Assessment and Plan (Free Text) Plan: BUN 20 DuoNeb Norvasc Colace Vasotec Lovenox Lasix Neurontin Azithromycin Ceftriaxone Anaprox Protonix Phenergan Moderate to high complexity of care. Plan of care discussed with patient &/or family & staff. Medications reviewed and reconciled. Labs reviewed. Vitals reviewed.
--- NOTE | 2019-02-07 22:29 | CP.PCM.PN ---
Subjective - Date & Time of Evaluation Date of Evaluation: 02/07/19 Time of Evaluation: 22:27 - Subjective Subjective: PT FEELS BETTER. +COUGH. ROS; OTHERWISE NEG. Objective - Vital Signs/Intake and Output Vital Signs (last 24 hours): Temp Pulse Resp BP Pulse Ox 98.3 F 80 20 111/63 97 02/07/19 15:00 02/07/19 15:00 02/07/19 15:00 02/07/19 15:00 02/07/19 15:00 - Medications Medications: Current Medications Albuterol/Ipratropium (Duoneb 3 Mg/0.5 Mg (3 Ml) Ud) 3 ml INH RQ4 [facility] Last Admin: 02/07/19 21:39 Dose: 3 ml Amlodipine Besylate (Norvasc) 10 mg PO DAILY [facility] Last Admin: 02/07/19 10:38 Dose: 10 mg Docusate Sodium (Colace) 100 mg PO BID [facility] Last Admin: 02/07/19 17:23 Dose: 100 mg Enalapril Maleate (Vasotec) 10 mg PO DAILY [facility] Last Admin: 02/07/19 10:38 Dose: 10 mg Enoxaparin Sodium (Lovenox) 40 mg SC DAILY [facility] Last Admin: 02/07/19 10:38 Dose: 40 mg Furosemide (Lasix) 40 mg IVP DAILY [facility] Last Admin: 02/07/19 10:39 Dose: 40 mg Gabapentin (Neurontin) 100 mg PO Q12 [facility] Last Admin: 02/07/19 21:18 Dose: 100 mg Azithromycin 500 mg/ Sodium (Chloride) 250 mls @ 250 mls/hr IVPB DAILY [facility]; Pr otocol Last Admin: 02/07/19 10:39 Dose: 250 mls/hr Ceftriaxone Sodium 1 gm/ (Sodium Chloride) 100 mls @ 100 mls/hr IVPB DAILY [facility]; Protocol Last Admin: 02/07/19 10:39 Dose: 100 mls/hr Naproxen (Anaprox Ds) 550 mg PO BID [facility] Last Admin: 02/07/19 17:23 Dose: 550 mg Pantoprazole Sodium (Protonix Ec Tab) 40 mg PO DAILY [facility] Last Admin: 02/07/19 10:38 Dose: 40 mg Promethazine HCl (Phenergan Syrup) 6.25 mg PO Q6 [facility] Last Admin: 02/07/19 17:23 Dose: 6.25 mg - Labs Labs: 02/05/19 07:31 02/05/19 07:31 - Constitutional Appears: No Acute Distress - Head Exam Head Exam: ATRAUMATIC, NORMOCEPHALIC - Eye Exam Eye Exam: EOMI, Normal appearance - ENT Exam ENT Exam: Mucous Membranes Moist - Neck Exam Neck Exam: Normal Inspection - Respiratory Exam Respiratory Exam: Decreased Breath Sounds. absent: Wheezes, Respiratory Distress - Cardiovascular Exam Cardiovascular Exam: RRR, +S1, +S2 - GI/Abdominal Exam GI & Abdominal Exam: Soft. absent: Tenderness - Rectal Exam Rectal Exam: Deferred - Extremities Exam Extremities Exam: absent: Calf Tenderness, Pedal Edema - Back Exam Back Exam: absent: CVA tenderness (L), CVA tenderness (R) - Neurological Exam Neurological Exam: Alert, Awake, CN II-XII Intact, Oriented x3 - Psychiatric Exam Psychiatric exam: Normal Mood Assessment and Plan (1) Pneumonia Status: Acute (2) COPD exacerbation Status: Acute (3) CHF (congestive heart failure) Status: Acute (4) Hypertension Status: Acute (5) Hyperlipidemia Status: Acute (6) Breast carcinoma Status: Acute - Assessment and Plan (Free Text) Assessment: RESP STATUS COMFORTABLE AT REST. CONT NEB BD., MONITOR O2 SAT. CXR REVIEWED. AFEBRILE ON AB. INCREASE OOB. DISCUSSED WITH STAFF AT LENGTH.
[2019-02-08] MEDS: Promethazine 6.25 MG/5 ML CUP PO SCH ×4 (00:11→17:27)
[2019-02-08 07:46] VITALS: RESP 20
[2019-02-08] MEDS: Albuterol-Ipratrop 3 mg / 0.5 (3 ml) UD INH SCH ×3 (09:31→20:26)
--- NOTE | 2019-02-08 10:50 | CP.PCM.PN ---
Subjective - Date & Time of Evaluation Date of Evaluation: 02/08/19 Time of Evaluation: 10:47 - Subjective Subjective: PT ALERT, OOB IN CHAIR, LESS COUGH. FEELS BETTER. ROS;OTHERWISE NEG. Objective - Vital Signs/Intake and Output Vital Signs (last 24 hours): Temp Pulse Resp BP Pulse Ox 97.7 F 97 H 20 125/74 97 02/08/19 07:44 02/08/19 07:44 02/08/19 07:44 02/08/19 07:44 02/08/19 07:44 Intake and Output: 02/08/19 02/08/19 06:59 18:59 Intake Total 700 Balance 700 - Medications Medications: Current Medications Albuterol/Ipratropium (Duoneb 3 Mg/0.5 Mg (3 Ml) Ud) 3 ml INH RQ4 [facility] Last Admin: 02/08/19 09:31 Dose: 3 ml Amlodipine Besylate (Norvasc) 10 mg PO DAILY [facility] Last Admin: 02/07/19 10:38 Dose: 10 mg Docusate Sodium (Colace) 100 mg PO BID [facility] Last Admin: 02/07/19 17:23 Dose: 100 mg Enalapril Maleate (Vasotec) 10 mg PO DAILY [facility] Last Admin: 02/07/19 10:38 Dose: 10 mg Enoxaparin Sodium (Lovenox) 40 mg SC DAILY [facility] Last Admin: 02/07/19 10:38 Dose: 40 mg Furosemide (Lasix) 40 mg IVP DAILY [facility] Last Admin: 02/07/19 10:39 Dose: 40 mg Gabapentin (Neurontin) 100 mg PO Q12 [facility] Last Admin: 02/07/19 21:18 Dose: 100 mg Azithromycin 500 mg/ Sodium (Chloride) 250 mls @ 250 mls/hr IVPB DAILY [facility]; Protocol Last Admin: 02/07/19 10:39 Dose: 250 mls/hr Ceftriaxone Sodium 1 gm/ (Sodium Chloride) 100 mls @ 100 mls/hr IVPB DAILY [facility]; Protocol Last Admin: 02/07/19 10:39 Dose: 100 mls/hr Naproxen (Anaprox Ds) 550 mg PO BID [facility] Last Admin: 02/07/19 17:23 Dose: 550 mg Pantoprazole Sodium (Protonix Ec Tab) 40 mg PO DAILY [facility] Last Admin: 02/07/19 10:38 Dose: 40 mg Promethazine HCl (Phenergan Syrup) 6.25 mg PO Q6 [facility] Last Admin: 02/08/19 06:01 Dose: 6.25 mg - Labs Labs: 02/05/19 07:31 02/05/19 07:31 - Constitutional Appears: No Acute Distress - Head Exam Head Exam: ATRAUMATIC, NORMOCEPHALIC - Eye Exam Eye Exam: EOMI, Normal appearance - ENT Exam ENT Exam: Mucous Membranes Moist - Neck Exam Neck Exam: Normal Inspection - Respiratory Exam Respiratory Exam: absent: Wheezes, Respiratory Distress - Cardiovascular Exam Cardiovascular Exam: RRR, +S1, +S2 - GI/Abdominal Exam GI & Abdominal Exam: Soft. absent: Tenderness - Rectal Exam Rectal Exam: Deferred - Extremities Exam Extremities Exam: absent: Calf Tenderness, Pedal Edema - Back Exam Back Exam: absent: CVA tenderness (L), CVA tenderness (R) - Neurological Exam Neurological Exam: Alert, Awake, CN II-XII Intact, Normal Gait, Oriented x3 - Psychiatric Exam Psychiatric exam: Normal Mood - Skin Skin Exam: absent: Rash Assessment and Plan (1) Pneumonia Status: Acute (2) COPD exacerbation Status: Acute (3) CHF (congestive heart failure) Status: Acute (4) Hypertension Status: Acute (5) Hyperlipidemia Status: Acute (6) Breast carcinoma Status: Acute - Assessment and Plan (Free Text) Assessment: RESP STATUS IMPROVING., CONT NEB BD. MONITOR O2 SAT ON ROOM AIR. ADD BREO. CXR REVIEWED. AFEBRILE ON AB. CONT PULM TOILET., AND INCENT. SPIROM. DISCUSSED WITH STAFF AT LENGTH AND FAMILY AT BEDSIDE.
[2019-02-08] MEDS: Pantoprazole 40 mg EC Tab PO SCH (11:00)
[2019-02-08] MEDS: Azithromycin 500 MG in Sodium Chloride 0.9% 250 ML IVPB SCH (11:00)
[2019-02-08] MEDS: Enoxaparin 40 mg Syringe SC SCH (11:00)
[2019-02-08] MEDS: Naproxen 550 mg Tab PO SCH ×2 (11:00→17:26)
--- NOTE | 2019-02-08 20:47 | CP.PCM.PN ---
Subjective - Date & Time of Evaluation Date of Evaluation: 02/08/19 - Subjective Subjective: patient examined today no nausea no vomiting no fever no dizziness no diarrhea no shortness of breath Objective - Vital Signs/Intake and Output Vital Signs (last 24 hours): Temp Pulse Resp BP Pulse Ox 97.8 F 82 20 129/70 96 02/08/19 16:00 02/08/19 16:00 02/08/19 16:00 02/08/19 16:00 02/08/19 16:00 Intake and Output: 02/08/19 02/09/19 18:59 06:59 Intake Total 830 Balance 830 - Medications Medications: Current Medications Albuterol/Ipratropium (Duoneb 3 Mg/0.5 Mg (3 Ml) Ud) 3 ml INH RQ4 [facility] Last Admin: 02/08/19 20:26 Dose: 3 ml Amlodipine Besylate (Norvasc) 10 mg PO DAILY [facility] Last Admin: 02/08/19 11:00 Dose: 10 mg Docusate Sodium (Colace) 100 mg PO BID [facility] Last Admin: 02/08/19 17:26 Dose: 100 mg Enalapril Maleate (Vasotec) 10 mg PO DAILY [facility] Last Admin: 02/08/19 11:00 Dose: 10 mg Enoxaparin Sodium (Lovenox) 40 mg SC DAILY [facility] Last Admin: 02/08/19 11:00 Dose: 40 mg Furosemide (Lasix) 40 mg IVP DAILY [facility] Last Admin: 02/08/19 11:00 Dose: 40 mg Gabapentin (Neurontin) 100 mg PO Q12 [facility] Last Admin: 02/08/19 11:00 Dose: 100 mg Azithromycin 500 mg/ Sodium (Chloride) 250 mls @ 250 mls/hr IVPB DAILY [facility]; Protocol Last Admin: 02/08/19 11:00 Dose: 250 mls/hr Ceftriaxone Sodium 1 gm/ (Sodium Chloride) 100 mls @ 100 mls/hr IVPB DAILY [facility]; Protocol Last Admin: 02/08/19 11:00 Dose: 100 mls/hr Naproxen (Anaprox Ds) 550 mg PO BID [facility] Last Admin: 02/08/19 17:26 Dose: 550 mg Pantoprazole Sodium (Protonix Ec Tab) 40 mg PO DAILY [facility] Last Admin: 02/08/19 11:00 Dose: 40 mg Promethazine HCl (Phenergan Syrup) 6.25 mg PO Q6 [facility] Last Admin: 02/08/19 17:27 Dose: 6.25 mg - Labs Labs: 02/05/19 07:31 02/05/19 07:31 - Constitutional Appears: Well - Head Exam Head Exam: ATRAUMATIC, NORMAL INSPECTION, NORMOCEPHALIC - Eye Exam Eye Exam: EOMI, Normal appearance, PERRL Pupil Exam: NORMAL ACCOMODATION, PERRL - ENT Exam ENT Exam: Mucous Membranes Moist, Normal Exam - Neck Exam Neck Exam: Full ROM, Normal Inspection. absent: Lymphadenopathy - Respiratory Exam Respiratory Exam: Decreased Breath Sounds - Cardiovascular Exam Cardiovascular Exam: REGULAR RHYTHM, +S1, +S2 - GI/Abdominal Exam GI & Abdominal Exam: Soft, Diminished Bowel Sounds - Rectal Exam Rectal Exam: Deferred - Neurological Exam Neurological Exam: Oriented x3 Assessment and Plan (1) Abdominal pain Status: Acute (2) Breast carcinoma Status: Acute (3) CHF (congestive heart failure) Status: Acute (4) Chronic back pain Status: Acute (5) COPD exacerbation Status: Acute (6) Dyspnea Status: Acute (7) Gas Status: Acute (8) Hyperlipidemia Status: Acute (9) Hypertension Status: Acute (10) Pleural effusion Status: Acute (11) Pneumonia Status: Acute (12) Pneumonitis Status: Acute - Assessment and Plan (Free Text) Plan: plan discussed with patient moderate complexity of care DuoNeb Norvasc Colace Vasotec Lovenox Lasix Neurontin Azithromycin Ceftriaxone Anaprox Protonix Phenergan medication reviewed labs reviewed vitals reviewed
[2019-02-08 23:57] VITALS: TEMP 98; O2SAT 97
[2019-02-09] MEDS: Promethazine 6.25 MG/5 ML CUP PO SCH ×2 (00:15→05:23)
[2019-02-09] MEDS: Albuterol-Ipratrop 3 mg / 0.5 (3 ml) UD INH SCH ×3 (00:18→08:20)
[2019-02-09 07:36] LABS: BASO # 0.1 K/uL (0.0-0.2); BASO % 0.9 % (0.0-2.0); EOS # 0.6 K/uL (0.0-0.7); EOS % 9.1 % (0.0-4.0); HEMOGLOBIN 11.6 g/dL (11.0-16.0); LYMPH # 0.9 K/uL (1.0-4.3); LYMPH % 13.6 % (20.0-40.0); MEAN CELL VOLUME 84.5 fL (81.0-99.0); MEAN CORPUSCULAR HEMOGLOBIN 28.8 pg (27.0-31.0); MEAN CORPUSCULAR HGB CONC 34.1 g/dL (33.0-37.0); MEAN PLATELET VOLUME 7.3 fL (7.2-11.7); MONO # 0.5 K/uL (0.0-0.8); MONO % 8.6 % (0.0-10.0); NEUT # 4.2 K/uL (1.8-7.0); NEUT % 67.8 % (50.0-75.0); RBC 4.02 Mil/uL (3.80-5.20); RED CELL DISTRIBUTION WIDTH 13.7 % (11.5-14.5); WHITE BLOOD COUNT 6.3 K/uL (4.8-10.8)
[2019-02-09 07:48] LABS: BLOOD UREA NITROGEN 18 mg/dL (7-17); CALCIUM 8.9 mg/dl (8.6-10.4); GFR NON-AFRICAN AMERICAN > 60
[2019-02-09] MEDS ORDERED: Fluticasone-Vilanterol 100/25mcg Diskus INH SCH (08:00)
[2019-02-09 08:17] VITALS: PULSE 82
[2019-02-09] MEDS: Pantoprazole 40 mg EC Tab PO SCH (09:49)
[2019-02-09] MEDS: Naproxen 550 mg Tab PO SCH (09:49)
[2019-02-09 09:58] VITALS: BP 130/78
[2019-02-09] MEDS: Enoxaparin 40 mg Syringe SC SCH (09:58)
[2019-02-09] MEDS: Azithromycin 500 MG in Sodium Chloride 0.9% 250 ML IVPB SCH (09:58)
--- NOTE | 2019-02-09 10:09 | CP.PCM.PN ---
Subjective - Date & Time of Evaluation Date of Evaluation: 02/09/19 Time of Evaluation: 10:09 - Subjective Subjective: alert, oriented, ambulatory, no sob or chest pains. Objective - Vital Signs/Intake and Output Vital Signs (last 24 hours): Temp Pulse Resp BP Pulse Ox 98 F 82 20 130/78 97 02/09/19 08:16 02/09/19 08:16 02/09/19 08:16 02/09/19 09:49 02/09/19 08:16 Intake and Output: 02/09/19 02/09/19 06:59 18:59 Intake Total 240 Balance 240 - Medications Medications: Current Medications Albuterol/Ipratropium (Duoneb 3 Mg/0.5 Mg (3 Ml) Ud) 3 ml INH RQ4 [facility] Last Admin: 02/09/19 08:20 Dose: 3 ml Amlodipine Besylate (Norvasc) 10 mg PO DAILY [facility] Last Admin: 02/09/19 09:49 Dose: 10 mg Docusate Sodium (Colace) 100 mg PO BID [facility] Last Admin: 02/09/19 09:49 Dose: 100 mg Enalapril Maleate (Vasotec) 10 mg PO DAILY [facility] Last Admin: 02/09/19 09:49 Dose: 10 mg Enoxaparin Sodium (Lovenox) 40 mg SC DAILY [facility] Last Admin: 02/09/19 09:58 Dose: Not Given Furosemide (Lasix) 40 mg IVP DAILY [facility] Last Admin: 02/09/19 09:49 Dose: 40 mg Gabapentin (Neurontin) 100 mg PO Q12 [facility] Last Admin: 02/09/19 09:49 Dose: 100 mg Azithromycin 500 mg/ Sodium (Chloride) 250 mls @ 250 mls/hr IVPB DAILY [facility]; Protocol Last Admin: 02/09/19 09:58 Dose: Not Given Ceftriaxone Sodium 1 gm/ (Sodium Chloride) 100 mls @ 100 mls/hr IVPB DAILY [facility]; Protocol Last Admin: 02/09/19 09:50 Dose: 100 mls/hr Naproxen (Anaprox Ds) 550 mg PO BID [facility] Last Admin: 02/09/19 09:49 Dose: 550 mg Pantoprazole Sodium (Protonix Ec Tab) 40 mg PO DAILY [facility] Last Admin: 02/09/19 09:49 Dose: 40 mg Promethazine HCl (Phenergan Syrup) 6.25 mg PO Q6 [facility] Last Admin: 02/09/19 05:23 Dose: 6.25 mg - Labs Labs: 02/09/19 07:28 02/09/19 07:28 Assessment and Plan - Assessment and Plan (Free Text) Assessment: Patient is seen and examined. Alert and orientedx3, no sob or wheezing noted, ambulating well with no sob. Has minimal edema on bilateral foot. Discussed with DR Aspen Olvera, plan to discharge home on oral antibiotics x 5 days. Advised to follow up with PMD in 1 week. Advised to follow up with criminal research specialist.
--- NOTE | 2019-02-09 11:19 | CP.PCM.PN ---
Subjective - Date & Time of Evaluation Date of Evaluation: 02/09/19 Time of Evaluation: 11:16 - Subjective Subjective: PT ALERT, OOB , FEEL BETTER., LESS PEDRO. ROS ; OTHERWISE NEG. Objective - Vital Signs/Intake and Output Vital Signs (last 24 hours): Temp Pulse Resp BP Pulse Ox 98 F 82 20 130/78 97 02/09/19 08:16 02/09/19 08:16 02/09/19 08:16 02/09/19 09:49 02/09/19 08:16 Intake and Output: 02/09/19 02/09/19 06:59 18:59 Intake Total 240 Balance 240 - Medications Medications: Current Medications Albuterol/Ipratropium (Duoneb 3 Mg/0.5 Mg (3 Ml) Ud) 3 ml INH RQ4 TAE Last Admin: 02/09/19 08:20 Dose: 3 ml Amlodipine Besylate (Norvasc) 10 mg PO DAILY [facility] Last Admin: 02/09/19 09:49 Dose: 10 mg Docusate Sodium (Colace) 100 mg PO BID TAE Last Admin: 02/09/19 09:49 Dose: 100 mg Enalapril Maleate (Vasotec) 10 mg PO DAILY TAE Last Admin: 02/09/19 09:49 Dose: 10 mg Enoxaparin Sodium (Lovenox) 40 mg SC DAILY [facility] Last Admin: 02/09/19 09:58 Dose: Not Given Furosemide (Lasix) 40 mg IVP DAILY [facility] Last Admin: 02/09/19 09:49 Dose: 40 mg Gabapentin (Neurontin) 100 mg PO Q12 TAE Last Admin: 02/09/19 09:49 Dose: 100 mg Azithromycin 500 mg/ Sodium (Chloride) 250 mls @ 250 mls/hr IVPB DAILY [facility]; Protocol Last Admin: 02/09/19 09:58 Dose: Not Given Ceftriaxone Sodium 1 gm/ (Sodium Chloride) 100 mls @ 100 mls/hr IVPB DAILY [facility]; Protocol Last Admin: 02/09/19 09:50 Dose: 100 mls/hr Naproxen (Anaprox Ds) 550 mg PO BID [facility] Last Admin: 02/09/19 09:49 Dose: 550 mg Pantoprazole Sodium (Protonix Ec Tab) 40 mg PO DAILY [facility] Last Admin: 02/09/19 09:49 Dose: 40 mg Promethazine HCl (Phenergan Syrup) 6.25 mg PO Q6 TAE Last Admin: 02/09/19 05:23 Dose: 6.25 mg - Labs Labs: 02/09/19 07:28 02/09/19 07:28 - Constitutional Appears: No Acute Distress - Head Exam Head Exam: ATRAUMATIC, NORMOCEPHALIC - Eye Exam Eye Exam: EOMI, Normal appearance - ENT Exam ENT Exam: Mucous Membranes Moist - Respiratory Exam Respiratory Exam: Decreased Breath Sounds, Prolonged Expiratory Phase. absent: Wheezes, Respiratory Distress - Cardiovascular Exam Cardiovascular Exam: RRR, +S1, +S2 - GI/Abdominal Exam GI & Abdominal Exam: Soft. absent: Tenderness - Rectal Exam Rectal Exam: Deferred - Extremities Exam Extremities Exam: absent: Calf Tenderness, Pedal Edema - Back Exam Back Exam: absent: CVA tenderness (L), CVA tenderness (R) - Neurological Exam Neurological Exam: Alert, Awake, CN II-XII Intact, Normal Gait, Oriented x3 - Psychiatric Exam Psychiatric exam: Normal Mood - Skin Skin Exam: absent: Rash Assessment and Plan (1) Pneumonia Status: Acute (2) COPD exacerbation Status: Acute (3) CHF (congestive heart failure) Status: Acute (4) Hypertension Status: Acute (5) Hyperlipidemia Status: Acute (6) Breast carcinoma Status: Acute - Assessment and Plan (Free Text) Assessment: RESP STATUS IMPROVING., CONT NEB BD., OXYGENATION IMPROVED.,MONITOR O2 SAT ON ROOM AIR. ADD BREO. CXR REVIEWED. F/U FOR CLEARANCE. AFEBRILE ON AB. PFT'S OUTPT. DISCUSSED WITH STAFF AT LENGTH.
--- NOTE | 2019-02-09 19:08 | CP.PCM.DIS ---
Provider - Provider Date of Admission: 02/04/19 17:28 Attending physician: Be Olvera MD Consults: 02/03/19 21:12 Pulmonology Consult Routine Comment: Consulting Provider: Sofía Perez Consulting Physician: Sofía Perez Reason for Consult: sob 02/04/19 17:47 Inpatient [employer] Core Measures Referral Routine Comment: Physician Instructions: Reason For Exam: complaints of SOB on admssion Diagnosis - Discharge Diagnosis (1) Abdominal pain Status: Acute (2) Breast carcinoma Status: Acute (3) CHF (congestive heart failure) Status: Acute (4) Chronic back pain Status: Acute (5) COPD exacerbation Status: Acute (6) Dyspnea Status: Acute (7) Gas Status: Acute (8) Hyperlipidemia Status: Acute (9) Hypertension Status: Acute (10) Pleural effusion Status: Acute (11) Pneumonia Status: Acute (12) Pneumonitis Status: Acute Hospital Course - Lab Results Lab Results: Most Recent Lab Values WBC 6.3 K/uL (4.8-10.8) 02/09/19 07:28 RBC 4.02 Mil/uL (3.80-5.20) 02/09/19 07:28 Hgb 11.6 g/dL (11.0-16.0) 02/09/19 07:28 Hct 33.9 % (34.0-47.0) L 02/09/19 07:28 MCV 84.5 fL (81.0-99.0) 02/09/19 07:28 MCH 28.8 pg (27.0-31.0) 02/09/19 07:28 MCHC 34.1 g/dL (33.0-37.0) 02/09/19 07:28 RDW 13.7 % (11.5-14.5) 02/09/19 07:28 Plt Count 285 K/uL (130-400) 02/09/19 07:28 MPV 7.3 fL (7.2-11.7) 02/09/19 07:28 Neut % (Auto) 67.8 % (50.0-75.0) 02/09/19 07:28 Lymph % (Auto) 13.6 % (20.0-40.0) L 02/09/19 07:28 [place] % (Auto) 8.6 % (0.0-10.0) 02/09/19 07:28 Eos % (Auto) 9.1 % (0.0-4.0) H 02/09/19 07:28 Baso % (Auto) 0.9 % (0.0-2.0) 02/09/19 07:28 Neut # (Auto) 4.2 K/uL (1.8-7.0) 02/09/19 07:28 Lymph # (Auto) 0.9 K/uL (1.0-4.3) L 02/09/19 07:28 [place] # (Auto) 0.5 K/uL (0.0-0.8) 02/09/19 07:28 Eos # (Auto) 0.6 K/uL (0.0-0.7) 02/09/19 07:28 Baso # (Auto) 0.1 K/uL (0.0-0.2) 02/09/19 07:28 Neutrophils % (Manual) 93 % (50-75) H 02/03/19 13:28 Band Neutrophils % 1 % (0-2) 02/03/19 13:28 Lymphocytes % (Manual) 2 % (20-40) L 02/03/19 13:28 Monocytes % (Manual) 4 % (0-10) 02/03/19 13:28 Platelet Estimate Normal (NORMAL) 02/03/19 13:28 RBC Morphology Normal 02/03/19 13:28 D-Dimer, Quantitative 1919 ng/mlDDU (0-243) H 02/03/19 13:28 Sodium 138 mmol/L (132-148) 02/09/19 07:28 Potassium 5.2 mmol/L (3.6-5.2) 02/09/19 07:28 Chloride 95 mmol/L (98-107) L 02/09/19 07:28 Carbon Dioxide 33 mmol/L (22-30) H 02/09/19 07:28 Anion Gap 15 (10-20) 02/09/19 07:28 BUN 18 mg/dL (7-17) H 02/09/19 07:28 Creatinine 0.7 mg/dL (0.7-1.2) 02/09/19 07:28 Est GFR ( Amer) > 60 02/09/19 07:28 Est GFR (Non-Af Amer) > 60 02/09/19 07:28 Random Glucose 95 mg/dL (65-105) 02/09/19 07:28 Calcium 8.9 mg/dl (8.6-10.4) 02/09/19 07:28 Total Bilirubin 0.6 mg/dL (0.2-1.3) 02/03/19 13:28 AST 22 U/L (14-36) 02/03/19 13:28 ALT 20 U/L (9-52) 02/03/19 13:28 Alkaline Phosphatase 141 U/L (38-126) H 02/03/19 13:28 Troponin I < 0.0120 ng/mL (0.00-0.120) 02/03/19 13:28 NT-Pro-B Natriuret Pep 208 pg/mL (0-900) 02/03/19 13:28 Total Protein 8.4 g/dL (6.3-8.3) H 02/03/19 13:28 Albumin 4.5 g/dL (3.5-5.0) 02/03/19 13:28 Globulin 3.9 gm/dL (2.2-3.9) 02/03/19 13:28 Albumin/Globulin Ratio 1.2 (1.0-2.1) 02/03/19 13:28 Urine Color Yellow (YELLOW) 02/03/19 13:28 Urine Clarity Clear (Clear) 02/03/19 13:28 Urine pH 6.0 (5.0-8.0) 02/03/19 13:28 Ur Specific [place] 1.013 (1.003-1.030) 02/03/19 13:28 Urine Protein Negative mg/dL (NEGATIVE) 02/03/19 13:28 Urine Glucose (UA) Normal mg/dL (Normal) 02/03/19 13:28 Urine Ketones 1+ mg/dL (NEGATIVE) H 02/03/19 13:28 Urine Blood Negative (NEGATIVE) 02/03/19 13:28 Urine Nitrate Negative (NEGATIVE) 02/03/19 13:28 Urine Bilirubin Negative (NEGATIVE) 02/03/19 13:28 Urine Urobilinogen Normal mg/dL (0.2-1.0) 02/03/19 13:28 Ur Leukocyte Esterase Neg [place]/uL (Negative) 02/03/19 13:28 Urine WBC (Auto) 1 /hpf (0-5) 02/03/19 13:28 Urine RBC (Auto) 1 /hpf (0-3) 02/03/19 13:28 Ur Squamous Epith Cells 4 /hpf (0-5) 02/03/19 13:28 Urine Bacteria Occ (<OCC) H 02/03/19 13:28 Discharge Exam - Head Exam Head Exam: ATRAUMATIC, NORMOCEPHALIC Discharge Plan - Discharge Medications Prescriptions: Nebulizer Accessories [A.i.r.s. Nebulizer] 1 each QID PRN #1 kit PRN Reason: Wheezing Fluticasone/Vilanterol 100/25 [Breo Ellipta 100-25 MCG INH] 1 puff INH RQD #1 puff Nebulizer and Compressor [Comp-Air Nebulizer System] 1 each MC QID PRN #1 each PRN Reason: Wheezing Albuterol/Ipratropium [Duoneb 3 mg/0.5 mg (3 ml) UD] 3 ml INH RQ4 #50 neb Levofloxacin [Levaquin] 500 mg PO DAILY #5 tablet hydroCHLOROthiazide [Microzide] 12.5 mg PO DAILY #30 cap Gabapentin [Neurontin] 100 mg PO Q12 #60 capsule Pantoprazole [Protonix EC Tab] 40 mg PO DAILY #30 ect Enalapril Maleate [Vasotec] 10 mg PO DAILY #30 tab Albuterol HFA [Ventolin HFA 90 mcg/actuation (8 g)] 0.09 mg IH QID PRN #1 puff PRN Reason: Wheezing - Follow Up Plan Condition: STABLE Disposition: HOME/ ROUTINE Instructions: Shortness of Breath (Dyspnea) (DC), Pleural Effusion (DC), Pneumonitis (DC) Additional Instructions: discharge home as per Dr Aspen Olvera follow up with PMD in 1 week bring all meds to the office to review Referrals: Eric Olvera MD [Staff Provider] -
== END 2019-02-09 12:58 | disposition home or self-care (01) | DRG 291 ==
LOC: C.ER 12:40 → C.9E 18:18 → C.3T 19:38 → OBSVTOIN 02-04 17:28
PROVIDERS: ADMIT Internal Medicine Nephrology; ATTEND Internal Medicine Nephrology
DX: I11.0 Hypertensive heart disease with heart failure (principal); J18.9 Pneumonia, unspecified organism; J44.0 Chronic obstructive pulmonary disease with (acute) lower respiratory infection; J44.1 Chronic obstructive pulmonary disease with (acute) exacerbation; I50.9 Heart failure, unspecified; E78.5 Hyperlipidemia, unspecified; G89.29 Other chronic pain; K21.9 Gastro-esophageal reflux disease without esophagitis; C50.919 Malignant neoplasm of unspecified site of unspecified female breast; Z87.891 Personal history of nicotine dependence